=== PATIENT | female | born 1985 | race Caucasian/White ===

== ENCOUNTER 2016-03-02 07:13 | Inpatient (IN) | payer BC ==
[2016-03-02] VITALS (50 sets, daily range): BP systolic 90–140; BP diastolic 55–92
[~2016-03-02] VITALS: Ht 170.2 cm; Wt 82.8 kg
[~2016-03-02 07:13] MED LIST: ACHYD1T PO; AMOX500C2 PO; FAMO-106 PO; FAMO20TA13 PO; HYDR-3583 PO; IBP800T PO; PREN1TAB39 PO
[2016-03-02] MEDS ORDERED: OXYTOCIN/NORMAL SALINE 500 ML IV SCH ×2 (07:45→07:47)
[2016-03-02 07:59] LABS: BASOPHILS % (AUTO) 0 % (0-10); EOSINOPHILS % (AUTO) 0 % (0-10); LYMPHOCYTES # (AUTO) 1.5 X 10^3 (1.0-4.0); LYMPHOCYTES % (AUTO) 16 % (12-44); MEAN CORPUSCULAR HEMOGLOBIN 31 PG (25-34); MEAN CORPUSCULAR HGB CONC 34 G/DL (32-36); MEAN CORPUSCULAR VOLUME 92 FL (80-99); MEAN PLATELET VOLUME 12.4 FL (7.4-10.4); MONOCYTES # (AUTO) 0.7 X 10^3 (0.0-1.0); MONOCYTES % (AUTO) 7 % (0-12); NEUTROPHILS # (AUTO) 7.3 X 10^3 (1.8-7.8); NEUTROPHILS % (AUTO) 76 % (42-75); PLATELET COUNT 164 10^3/uL (130-400); RED BLOOD COUNT 4.33 10^6/uL (4.35-5.85); RED CELL DISTRIBUTION WIDTH 13.6 % (10.0-14.5); WHITE BLOOD COUNT 9.6 10^3/uL (4.3-11.0)
[2016-03-02] MEDS ORDERED: BENZOCAINE/MENTHOL (DERMOPLAST) 56 ML CAN TP PRN (08:00)
[2016-03-02] MEDS ORDERED: TETANUS,DIPTH,PERTUSS P/F (BOOSTRIX) 0.5 ML VIAL IM ONE (08:00)
[2016-03-02] MEDS ORDERED: MEASLES,MUMPS,RUBELLA 1 EA INJ SC ONE (08:00)
[2016-03-02] MEDS ORDERED: SUFENTA 1 MCG/ML BUPIVA 0.1% 100 ML ONE (08:01)
[2016-03-02] MEDS ORDERED: BUPIVACAINE 0.25% 30 ML (SENSORCAINE) VIAL ONE (08:01)
[2016-03-02] MEDS ORDERED: LIDOCAINE/EPI 1%-1:200,000 (XYLOCAINE) 30 ML VIAL ONE (08:01)
[2016-03-02] MEDS ORDERED: fentaNYL INJECTION 100 MCG/2 ML AMP ONE (08:02)
[2016-03-02] MEDS ORDERED: LACTATED RINGERS 1,000 ML IV ONE (08:02)
--- NOTE | 2016-03-02 08:09 | History & Physical ---
History and Physical this patient is a 30-year-old A1 white female with an EDC of 03-12-17 putting her at 38-4/7 weeks' gestation today. She had been seen in clinic and followed for progressively decreasing amniotic fluid index. Her last scan showed an TAMERA of 60.she is admitted on this date secondary to oligohydramnios. Patient denies rupture membranes or bleeding. GBS culture done after 35 weeks gestation was negative. Patient has had no other problems with this . Allergies are to tetracycline was causes a rash Indications are vitamins and Pepcid Past medical history, past surgical history, obstetric history, family history, social histories are per the antepartum record HEENT exam is normal Neck is supple no lymphadenopathy no thyromegaly Abdomen is gravid soft nontender nondistended Extremities show no clubbing cyanosis. There is no Homans sign. Pelvic exam now on admission shows a cervix 3 cm dilated 5070 percent effaced soft and anterior with presenting part at the 0 to -1 station. this equates to a Armendariz score of 8 or 9 lab work is pending Assessment and plan 38-4/7 weeks' gestation with oligohydramnios admitted for induction of labor. Anticipation is for vaginal delivery. 38-4/7 weeks' gestation with oligohydramnios Allergies and Home Medications Allergies Coded Allergies: tetracycline (Verified Allergy, Unknown, 03/02/16) Home Medications Amoxicillin 500 Mg Capsule #14 1,000 MG PO BID Prescribed by: JUNIOR PINEDA on 03/27/152014 Famotidine 20 Mg Tablet 20 MG PO DAILY (Reported) Hydrocodone Bit/Acetaminophen 1 Tab Tablet 1-2 TAB PO Q 3HRS NEEDED (Reported ) Ibuprofen 800 Mg Tab 800 MG PO Q 6HRS NEEDED (Reported) Vits W-Ca,Fe,Fa(<1MG) 1 Each Tablet 1 EACH PO (Reported) KRYSTIAN AMBROSE MD Mar 02, 2016 8:09 am
--- NOTE | 2016-03-02 08:10 | OB Bishop Score ---
Armendariz Score 9 KRYSTIAN AMBROSE MD Mar 02, 2016 8:09 am
[2016-03-02] MEDS: D5 LR IV SOLUTION 1,000 ML IV SCH ×2 (08:17→17:58)
[2016-03-02] MEDS ORDERED: FLU TRIvalent (5 YOA+) 2016-17 (AFLURIA) 0.5 ML IM ONE (09:00)
[2016-03-02] MEDS ORDERED: ONDANSETRON 4 MG/2 ML (SDV) Z0FRAN ONE (17:46)
[2016-03-02] MEDS: KETOROLAC 30 MG/ML VIAL IV SCH (17:57)
[2016-03-02] MEDS ORDERED: ONDANSETRON 4 MG/2 ML (SDV) Z0FRAN IVP ONE (18:00)
[2016-03-02] MEDS: DOCUSATE SODIUM 100 MG (COLACE) CAP PO SCH (20:34)
[2016-03-03 00:13] VITALS: BP 100/55
[2016-03-03] MEDS: KETOROLAC 30 MG/ML VIAL IV SCH ×2 (00:13→06:35)
[2016-03-03 05:05] VITALS: BP 92/50
[2016-03-03] MEDS ORDERED: KETOROLAC 30 MG/ML VIAL ONE (06:25)
--- NOTE | 2016-03-03 07:33 | Progress Note-Standard ---
Standard Progress Note Progress Notes/Assess & Plan Progress/Assessment & Plan this patient is without complaint. She is ambulating, voiding, tolerating fairly well, has good pain control. Vital signs are stable. Patient is afebrile. Vital Signs Date Time Temp Pulse Resp B/P Pulse Ox O2 Delivery O2 Flow Rate FiO2 03/03/16 05:05 98.0 69 18 92/50 98 Room Air 03/03/16 00:13 98.7 81 18 100/55 98 Room Air 03/02/16 20:36 98.2 91 18 115/63 98 Room Air 03/02/16 18:10 99.5 88 18 114/57 Room Air 03/02/16 18:00 100.0 101 18 111/59 Room Air 03/02/16 17:45 100.5 103 20 123/77 Room Air 03/02/16 17:30 104 20 112/67 Room Air 03/02/16 17:15 99.0 100 18 115/58 Room Air 03/02/16 17:00 99.1 104 18 126/68 Room Air 03/02/16 16:45 99.2 103 20 132/65 Room Air 03/02/16 16:30 99.0 112 20 131/56 Room Air 03/02/16 16:00 116 22 140/89 Room Air 03/02/16 15:45 89 20 130/81 Room Air 03/02/16 15:30 83 20 115/77 Room Air 03/02/16 15:15 85 20 112/75 Room Air 03/02/16 15:00 86 20 119/79 99 Room Air 03/02/16 14:45 85 18 115/77 97 Room Air 03/02/16 14:30 96.9 81 18 119/73 97 Room Air 03/02/16 14:15 82 20 117/72 98 Room Air 03/02/16 14:00 93 20 117/72 97 Room Air 03/02/16 13:45 86 20 112/69 97 Room Air 03/02/16 13:30 88 20 112/74 97 Room Air 03/02/16 13:24 93 18 119/76 97 Room Air 03/02/16 13:15 84 18 116/76 97 Room Air 03/02/16 13:00 93 18 119/76 97 Room Air 03/02/16 12:45 88 18 109/71 97 Room Air 03/02/16 12:30 87 20 110/71 96 Room Air 03/02/16 12:15 92 20 114/68 97 Room Air 03/02/16 12:00 89 20 111/70 97 Room Air 03/02/16 11:45 104 18 139/92 98 Room Air 03/02/16 11:30 89 18 107/76 98 Room Air 03/02/16 11:15 76 18 109/72 97 Room Air 03/02/16 11:00 90 20 116/80 97 Room Air 03/02/16 10:45 97.1 103 18 133/86 99 Room Air 03/02/16 10:30 80 18 116/77 96 Room Air 03/02/16 10:15 88 18 101/69 99 Room Air 03/02/16 10:00 96 18 119/76 97 Room Air 03/02/16 09:45 92 18 111/75 99 Room Air 03/02/16 09:40 96 16 111/71 99 Room Air 03/02/16 09:35 91 16 112/73 98 Room Air 03/02/16 09:30 91 18 110/75 98 Room Air 03/02/16 09:25 93 18 112/78 99 Room Air 03/02/16 09:20 93 16 90/55 99 Room Air 03/02/16 09:17 103 18 99/57 99 Room Air 03/02/16 09:15 114 18 112/76 99 Room Air 03/02/16 09:10 82 20 114/73 Room Air 03/02/16 09:05 96 20 116/74 Room Air 03/02/16 09:00 92 20 124/81 Room Air 03/02/16 08:50 93 20 114/72 Room Air 03/02/16 08:35 82 20 121/81 Room Air 03/02/16 08:20 74 20 117/78 Room Air fundus is firm below the umbilicus and nontender. Extremities are benign. There is no clubbing or cyanosis. There is no Homans sign. There is some pretibial pitting edema that is normal. Assessment and plan day number 1 doing well. Plan is for routine convalescence care today and plan for discharge home tomorrow KRYSTIAN AMBROSE MD Mar 03, 2016 7:33 am
[2016-03-03] MEDS ORDERED: IBUP-1780 PO (07:34)
[2016-03-03] MEDS ORDERED: OXYC-465 PO (07:34)
[2016-03-03] MEDS ORDERED: DOCU100C37 PO (07:34)
--- NOTE | 2016-03-03 07:36 | Discharge Instructions ---
Discharge Instructions Discharge Medications New, Converted or Re-Newed RX: RX on Chart Patient Instructions Patient Instructions: as directed Return to The Hospital For: as directed. Activity & Diet Discharge Diet: No Restrictions Activity as Tolerated: No Orders-Post D/C & Referrals Follow Up Appt: Call to make follow up appt. for patient in 4 weeks. Activity Per routine post vaginal delivery instructions. Diet as tolerated Patient may shower or tub bathe as desired. KRYSTIAN AMBROSE MD Mar 03, 2016 7:36 am
--- NOTE | 2016-03-03 09:08 | PROCEDURE REPORT ---
PROCEDURE PHYSICIAN: KRYSTIAN AMBROSE DATE OF PROCEDURE: 03/02/2016 DATE OF DICTATION: 03/02/2016 DELIVERY NOTE: The patient delivered by term spontaneous vaginal delivery of a viable female with Apgars of 7 and 9 at 1 and 5 minutes respectfully. Weight was 8 pounds 7 ounces. Delivery time was 1618. Blood gas is pending. Delivery was accomplished over a first-degree perineal laceration under epidural analgesia. There were fairly significant decels as patient was pushing. Cord blood was obtained from an umbilical artery for cord pH. Once the baby was delivered, the baby was resuscitated and stimulated. When the cord was pulseless, it was doubly clamped and cut and the infant passed to mom's abdomen. The infant was fairly quickly pink, was moving all extremities, had good tone, reflexes and crying. Pulse was over 100 shortly after delivery and remained that way. A nuchal cord x1 was easily released after the head was delivered. The delivery was completed. The infant was bulb suctioned on delivery of the head again on completion of delivery. The placenta delivered spontaneously Crane was normal with a 3 vessel cord. The cervix, vagina, rectum and perineum were examined and found intact except for a first-degree perineal laceration, extending from about the 4 o'clock to 6 o'clock position on the left side of the introitus. This was around the edge of the hymenal ring. There was a small periurethral abrasion that was hemostatic and was not repaired. The perineal laceration was repaired with a single suture of 3-0 Vicryl in the usual manner under local analgesia. Sponge and needle counts were correct on completion of delivery and the repair. Blood loss was around 150 mL. The patient tolerated delivery and repair well and remained in the LDR for recovery. The baby remained with the mom. Job ID: [id number] Dictated Date: 03/02/2016 16:35:08 Deportation Examiner Date: 03/03/2016 09:03:54 / luiz
[2016-03-03] MEDS: DOCUSATE SODIUM 100 MG (COLACE) CAP PO SCH ×2 (09:26→21:41)
[2016-03-03 09:28] VITALS: BP 113/63
[2016-03-03 12:06] VITALS: BP 111/62
[2016-03-03] MEDS: IBUPROFEN 800 MG (MOTRIN) TAB PO SCH ×2 (12:06→17:42)
[2016-03-03] MEDS: oxyCODONE/APAP 10/325MG (PERCOCET 10) TABLET PO PRN (12:06)
--- NOTE | 2016-03-03 12:32 | Anesthesia-Regional Post-Op ---
Regional Patient Condition Mental Status: Alert, Oriented x3 Circulation: Same as Pre-Op Headache: Absent Sensation: Full Recovery Motor Block: Absent Post Op Complications Complications None Follow Up Care/Instructions Patient Instructions None needed. Anesthesia/Patient Condition Patient is doing well, no complaints, stable vital signs, no apparent adverse anesthesia problems. PAYAL GUERRIER DO Mar 03, 2016 12:32
[2016-03-03 17:41] VITALS: BP 115/72
[2016-03-03 22:00] VITALS: BP 111/66
[2016-03-04] MEDS: IBUPROFEN 800 MG (MOTRIN) TAB PO SCH ×2 (00:31→06:25)
[2016-03-04] MEDS: oxyCODONE/APAP 10/325MG (PERCOCET 10) TABLET PO PRN (00:31)
[2016-03-04 03:25] VITALS: BP 113/74
--- NOTE | 2016-03-04 07:49 | Progress Note-Standard ---
Standard Progress Note Progress Notes/Assess & Plan Progress/Assessment & Plan this patient is without complaint. She is ambulating, voiding, tolerating fairly well, has good pain control. Vital signs are stable. Patient is afebrile. Vital Signs Date Time Temp Pulse Resp B/P Pulse Ox O2 Delivery O2 Flow Rate FiO2 03/03/16 05:05 98.0 69 18 92/50 98 Room Air 03/03/16 00:13 98.7 81 18 100/55 98 Room Air 03/02/16 20:36 98.2 91 18 115/63 98 Room Air 03/02/16 18:10 99.5 88 18 114/57 Room Air 03/02/16 18:00 100.0 101 18 111/59 Room Air 03/02/16 17:45 100.5 103 20 123/77 Room Air 03/02/16 17:30 104 20 112/67 Room Air 03/02/16 17:15 99.0 100 18 115/58 Room Air 03/02/16 17:00 99.1 104 18 126/68 Room Air 03/02/16 16:45 99.2 103 20 132/65 Room Air 03/02/16 16:30 99.0 112 20 131/56 Room Air 03/02/16 16:00 116 22 140/89 Room Air 03/02/16 15:45 89 20 130/81 Room Air 03/02/16 15:30 83 20 115/77 Room Air 03/02/16 15:15 85 20 112/75 Room Air 03/02/16 15:00 86 20 119/79 99 Room Air 03/02/16 14:45 85 18 115/77 97 Room Air 03/02/16 14:30 96.9 81 18 119/73 97 Room Air 03/02/16 14:15 82 20 117/72 98 Room Air 03/02/16 14:00 93 20 117/72 97 Room Air 03/02/16 13:45 86 20 112/69 97 Room Air 03/02/16 13:30 88 20 112/74 97 Room Air 03/02/16 13:24 93 18 119/76 97 Room Air 03/02/16 13:15 84 18 116/76 97 Room Air 03/02/16 13:00 93 18 119/76 97 Room Air 03/02/16 12:45 88 18 109/71 97 Room Air 03/02/16 12:30 87 20 110/71 96 Room Air 03/02/16 12:15 92 20 114/68 97 Room Air 03/02/16 12:00 89 20 111/70 97 Room Air 03/02/16 11:45 104 18 139/92 98 Room Air 03/02/16 11:30 89 18 107/76 98 Room Air 03/02/16 11:15 76 18 109/72 97 Room Air 03/02/16 11:00 90 20 116/80 97 Room Air 03/02/16 10:45 97.1 103 18 133/86 99 Room Air 03/02/16 10:30 80 18 116/77 96 Room Air 03/02/16 10:15 88 18 101/69 99 Room Air 03/02/16 10:00 96 18 119/76 97 Room Air 03/02/16 09:45 92 18 111/75 99 Room Air 03/02/16 09:40 96 16 111/71 99 Room Air 03/02/16 09:35 91 16 112/73 98 Room Air 03/02/16 09:30 91 18 110/75 98 Room Air 03/02/16 09:25 93 18 112/78 99 Room Air 03/02/16 09:20 93 16 90/55 99 Room Air 03/02/16 09:17 103 18 99/57 99 Room Air 03/02/16 09:15 114 18 112/76 99 Room Air 03/02/16 09:10 82 20 114/73 Room Air 03/02/16 09:05 96 20 116/74 Room Air 03/02/16 09:00 92 20 124/81 Room Air 03/02/16 08:50 93 20 114/72 Room Air 03/02/16 08:35 82 20 121/81 Room Air 03/02/16 08:20 74 20 117/78 Room Air fundus is firm below the umbilicus and nontender. Extremities are benign. There is no clubbing or cyanosis. There is no Homans sign. There is some pretibial pitting edema that is normal. Assessment and plan day number 1 doing well. Plan is for routine convalescence care today and plan for discharge home tomorrow March 04, 2016 Patient is without complaint. She is ambulating, voiding, tolerating by mouth well, has good pain control, is requesting discharge home. Vital Signs Date Time Temp Pulse Resp B/P Pulse Ox O2 Delivery O2 Flow Rate FiO2 03/04/16 03:25 97.1 67 18 113/74 95 Room Air 03/03/16 22:00 97.9 76 18 111/66 96 Room Air 03/03/16 17:41 98.4 63 18 115/72 98 Room Air 03/03/16 12:06 97.0 70 18 111/62 99 Room Air 03/03/16 09:28 98.1 80 18 113/63 98 Room Air vital signs are stable. Patient is afebrile. Fundus is firm below the umbilicus and nontender. Extremities show no clubbing or cyanosis. There is no Homans sign. There is some pretibial pitting edema that is normal. Assessment and plan day number 2 status post term spontaneous vaginal delivery at 38 and 3/7 weeks gestation. Plan is for discharge home with follow- up in clinic. Final Diagnosis 38-4/7 weeks' gestation with spontaneous vaginal delivery KRYSTIAN AMBROSE MD Mar 04, 2016 7:48 am
[2016-03-04] MEDS: DOCUSATE SODIUM 100 MG (COLACE) CAP PO SCH (08:15)
[2016-03-04 08:20] VITALS: BP 116/68
[2016-03-04] MEDS ORDERED: MEASLES,MUMPS,RUBELLA 1 EA INJ ONE (11:04)
== END 2016-03-04 12:15 | disposition home or self-care (01) | DRG 775 ==
LOC: WSo 07:13 → LDRP 07:14
PROVIDERS: ADMIT Obstetrics & Gynecology; ATTEND Obstetrics & Gynecology
PROC: 0HQ9XZZ Repair Perineum Skin, External Approach (ICD-10-PCS; principal; 2016-03-02)
PROC: 10E0XZZ Delivery of Products of Conception, External Approach (ICD-10-PCS; 2016-03-02)
DX: O41.03X0 Oligohydramnios, third trimester, not applicable or unspecified (principal); O70.0 First degree perineal laceration during delivery; O76 Abnormality in fetal heart rate and rhythm complicating labor and delivery; O69.81X0 Labor and delivery complicated by cord around neck, without compression, not applicable or unspecified; Z3A.38 38 weeks gestation of pregnancy; Z37.0 Single live birth; Z23 Encounter for immunization
CPT/HCPCS: 36415; 85025; 86850; 86900; 86901; 90707

== ENCOUNTER 2019-10-09 12:14 | Emergency (ER) | payer BC ==
[~2019-10-09] VITALS: Ht 162.5 cm; Wt 79.5 kg
[~2019-10-09 12:14] MED LIST changes: +DOCU100C37 PO; +IBUP-1780 PO; +OXYC-465 PO
[2019-10-09 13:37] LABS: BILIRUBIN,URINE NEGATIVE (NEGATIVE); CLARITY,URINE SL CLOUDY; COLOR,URINE YELLOW; GLUCOSE, URINE (UA) NEGATIVE (NEGATIVE); KETONES,URINE NEGATIVE (NEGATIVE); LEUKOCYTE ESTERASE ,URINE NEGATIVE (NEGATIVE); NITRITE,URINE NEGATIVE (NEGATIVE); PROTEIN,URINE NEGATIVE (NEGATIVE)
--- NOTE | 2019-10-09 13:41 | ED Abdominal Pain ---
General Chief Complaint: Abdominal/GI Problems Stated Complaint: FEVER;ABDOMINAL PAIN Source of Information: Patient Exam Limitations: No Limitations History of Present Illness Date Seen by Provider: Oct 09, 2019 Time Seen by Provider: 13:00 Initial Comments to ER by private vehicle with reports of diffuse abdominal cramping that awak ened her from sleep at about 1:30 this morning and resolved at 5:30. She has had some diarrhea since. She has had a fever up to 101. Last week she had urinary frequency and burning but she increased her water intake and those symptoms subsided. She denies nausea or vomiting. She is concerned she may have had some gallbladder disease as it runs in her family. Timing/Duration: 12 Hours Severity/Quality: Moderate Location: Epigastric, Generalized Abdomen Radiation: No Radiation Activities at Onset: None Allergies and Home Medications Allergies Coded Allergies: tetracycline (Verified Allergy, Unknown, 03/02/16) Home Medications Amoxicillin 500 Mg Capsule, 1,000 MG PO BID Prescribed by: JUNIOR PINEDA on 03/27/152014 Docusate Sodium 100 Mg Capsule, 100 MG PO BID Prescribed by: KRYSTIAN ULLOA on 03/03/16 0734 Famotidine 20 Mg Tablet, 20 MG PO DAILY, (Reported) Ibuprofen 800 Mg Tablet, 800 MG PO Q6H Prescribed by: KRYSTIAN ULLOA on 03/03/16 0734 Oxycodone HCl/Acetaminophen 1 Each Tablet, 1-2 TAB PO Q4H PRN for PAIN Prescribed by: KRYSTIAN ULLOA on 03/03/16 0734 Patient Home Medication List Home Medication List Reviewed: Yes Review of Systems Review of Systems Constitutional: see HPI EENTM: No Symptoms Reported Respiratory: No Symptoms Reported Cardiovascular: No Symptoms Reported Gastrointestinal: See HPI, Abdominal Pain, Diarrhea Genitourinary: No Symptoms Reported Musculoskeletal: no symptoms reported Skin: no symptoms reported Psychiatric/Neurological: No Symptoms Reported Past [id number]-Roxevc Hx Patient Social History Recent Foreign Travel: No Contact w/Someone Who Travel: No (N) Recent Hopitalizations: No Immunizations Up To Date PED Vaccines UTD: Yes Seasonal Allergies Seasonal Allergies: No Past Medical History Surgeries: Yes Respiratory: No Cardiac: No Neurological: No Reproductive Disorders: Yes (CINI 2009) Genitourinary: No Gastrointestinal: Yes Gastroesophageal Reflux Musculoskeletal: Yes Scoliosis Endocrine: No HEENT: No Cancer: No Psychosocial: No Integumentary: No Blood Disorders: No Adverse Reaction/Blood Tranf: No Family Medical History Patient reports no known family medical history. Physical Exam Vital Signs Vital Signs - First Documented 10/09/19 13:19 Temp 37.9 Pulse 92 Resp 18 B/P (MAP) 121/72 (88) O2 Delivery Room Air Capillary Refill : Height/Weight/BMI Height: 5'7.00" Weight: 182lbs. 8.0oz. 82.024217ne; 28.6 BMI Method: General Appearance: WD/WN, no apparent distress Respiratory: normal breath sounds, no respiratory distress, no accessory muscle use Cardiovascular: regular rate, rhythm, no murmur Gastrointestinal: normal bowel sounds, non tender, soft Extremities: normal range of motion, non-tender Neurologic/Psychiatric: alert, normal mood/affect, oriented x 3 Skin: normal color, warm/dry Progress/Results/Core Measures Results/Orders Lab Results Laboratory Tests Test 10/09/19 13:33 10/09/19 13:50 Range/Units Urine Color YELLOW Urine Clarity SL CLOUDY Urine pH 5.0 5-9 Urine Specific [place] >=1.030 1.016-1.022 Urine Protein NEGATIVE NEGATIVE Urine Glucose (UA) NEGATIVE NEGATIVE Urine Ketones NEGATIVE NEGATIVE Urine Nitrite NEGATIVE NEGATIVE Urine Bilirubin NEGATIVE NEGATIVE Urine Urobilinogen 0.2 < = 1.0 MG/DL Urine Leukocyte Esterase NEGATIVE NEGATIVE Urine RBC (Auto) NEGATIVE NEGATIVE Urine RBC RARE /HPF Urine WBC 0-2 /HPF Urine Squamous Epithelial Cells 10-25 H /HPF Urine Crystals NONE /LPF Urine Bacteria TRACE /HPF Urine Casts NONE /LPF Urine Mucus SMALL H /LPF Urine Culture Indicated NO White Blood Count 9.2 4.3-11.0 10^3/uL Red Blood Count 4.37 4.35-5.85 10^6/uL Hemoglobin 12.7 11.5-16.0 G/DL Hematocrit 38 35-52 % Mean Corpuscular Volume 88 80-99 FL Mean Corpuscular Hemoglobin 29 25-34 PG Mean Corpuscular Hemoglobin Concent 33 32-36 G/DL Red Cell Distribution Width 11.9 10.0-14.5 % Platelet Count 238 130-400 10^3/uL Mean Platelet Volume 10.3 7.4-10.4 FL Neutrophils (%) (Auto) 89 H 42-75 % Lymphocytes (%) (Auto) 6 L 12-44 % Monocytes (%) (Auto) 5 0-12 % Eosinophils (%) (Auto) 0 0-10 % Basophils (%) (Auto) 0 0-10 % Neutrophils # (Auto) 8.2 H 1.8-7.8 X 10^3 Lymphocytes # (Auto) 0.5 L 1.0-4.0 X 10^3 Monocytes # (Auto) 0.5 0.0-1.0 X 10^3 Eosinophils # (Auto) 0.0 0.0-0.3 10^3/uL Basophils # (Auto) 0.0 0.0-0.1 10^3/uL Neutrophils % (Manual) 83 % Lymphocytes % (Manual) 3 % Monocytes % (Manual) 3 % Band Neutrophils 11 % Blood Morphology Comment NORMAL Sodium Level 137 135-145 MMOL/L Potassium Level 3.6 3.6-5.0 MMOL/L Chloride Level 105 98-107 MMOL/L Carbon Dioxide Level 24 21-32 MMOL/L Anion Gap 8 5-14 MMOL/L Blood Urea Nitrogen 16 7-18 MG/DL Creatinine 0.83 0.60-1.30 MG/DL Estimat Glomerular Filtration Rate > 60 BUN/Creatinine Ratio 19 Glucose Level 100 70-105 MG/DL Calcium Level 8.8 8.5-10.1 MG/DL Corrected Calcium 8.8 8.5-10.1 MG/DL Total Bilirubin 0.7 0.1-1.0 MG/DL Aspartate Amino Transf (AST/SGOT) 12 5-34 U/L Alanine Aminotransferase (ALT/SGPT) 9 0-55 U/L Alkaline Phosphatase 58 40-136 U/L C-Reactive Protein High Sensitivity 1.39 H 0.00-0.50 MG/DL Total Protein 7.2 6.4-8.2 GM/DL Albumin 4.0 3.2-4.5 GM/DL Lipase 11 8-78 U/L Serum Test, Qualitative NEGATIVE NEGATIVE My Orders Orders - ALBERT SR APRN Cbc With Automated Diff (10/09/19 13:39) Hcg,Qualitative Serum (10/09/19 13:39) Comprehensive Metabolic Panel (10/09/19 13:39) Lipase (10/09/19 13:39) Ed Iv/Invasive Line Start (10/09/19 13:39) Hs C Reactive Protein (10/09/19 13:39) Us Gallbladder [id number] (10/09/19 13:39) Manual Differential (10/09/19 13:50) Vital Signs/I&O 10/09/19 13:19 Temp 37.9 Pulse 92 Resp 18 B/P (MAP) 121/72 (88) O2 Delivery Room Air Departure Communication (Admissions) 1445-A she remains without abdominal pain nausea or diarrhea here. Workup is unremarkable. We'll discharge to home. Impression Primary Impression: History of diarrhea Additional Impression: History of abdominal pain Disposition: HOME, SELF-CARE Condition: Stable Departure-Patient Inst. Decision time for Depature: 14:46 Referrals: KRYSTIAN AMBROSE MD (PCP/Family) Primary Care Physician Patient Instructions: [id number] Add. Discharge Instructions: 1. Return to ER for any bloody stools, worsening or intolerable abdominal pain. Follow-up with your doctor later this week. All discharge instructions reviewed with patient and/or family. Voiced understanding. ALBERT SR PROFESSOR OF POULTRY SCIENCE Oct 09, 2019 13:41
[2019-10-09 13:44] LABS: BACTERIA,URINE TRACE /HPF; RBC,URINE RARE /HPF; WBC,URINE 0-2 /HPF
[2019-10-09 13:57] LABS: BASOPHILS % (AUTO) 0 % (0-10); EOSINOPHILS % (AUTO) 0 % (0-10); HEMATOCRIT 38 % (35-52); HEMOGLOBIN 12.7 G/DL (11.5-16.0); LYMPHOCYTES # (AUTO) 0.5 X 10^3 (1.0-4.0); LYMPHOCYTES % (AUTO) 6 % (12-44); MEAN CORPUSCULAR HEMOGLOBIN 29 PG (25-34); MEAN CORPUSCULAR HGB CONC 33 G/DL (32-36); MEAN CORPUSCULAR VOLUME 88 FL (80-99); MEAN PLATELET VOLUME 10.3 FL (7.4-10.4); MONOCYTES # (AUTO) 0.5 X 10^3 (0.0-1.0); MONOCYTES % (AUTO) 5 % (0-12); NEUTROPHILS # (AUTO) 8.2 X 10^3 (1.8-7.8); NEUTROPHILS % (AUTO) 89 % (42-75); PLATELET COUNT 238 10^3/uL (130-400); RED CELL DISTRIBUTION WIDTH 11.9 % (10.0-14.5); WHITE BLOOD COUNT 9.2 10^3/uL (4.3-11.0)
[2019-10-09 14:18] LABS: ALANINE AMINOTRANSFERASE 9 U/L (0-55); ALKALINE PHOSPHATASE 58 U/L (40-136); BILIRUBIN,TOTAL 0.7 MG/DL (0.1-1.0); BUN/CREATININE RATIO 19; CALCIUM 8.8 MG/DL (8.5-10.1); CARBON DIOXIDE 24 MMOL/L (21-32); CHLORIDE 105 MMOL/L (98-107); CREATININE SERUM 0.83 MG/DL (0.60-1.30); GFR ESTIMATED > 60; GLUCOSE 100 MG/DL (70-105); LIPASE 11 U/L (8-78); POTASSIUM 3.6 MMOL/L (3.6-5.0); SODIUM 137 MMOL/L (135-145); TOTAL PROTEIN 7.2 GM/DL (6.4-8.2)
[2019-10-09 14:19] LABS: BAND NEUTROPHILS 11 %; LYMPHOCYTES % (MANUAL) 3 %; MONOCYTES % (MANUAL) 3 %; NEUTROPHILS % (MANUAL) 83 %; RBC MORPH NORMAL
--- NOTE | 2019-10-09 14:56 | Diagnostic Imaging Report ---
PROCEDURE: US Gallbladder. TECHNIQUE: Multiple real-time grayscale images were obtained over the right upper quadrant in various projections. INDICATION: Right upper quadrant pain. FINDINGS: Liver is normal in size at 17.4 cm. No discrete liver mass is detected. Portal vein is patent and shows normal direction of flow. Gallbladder is without stones or sludge. No wall thickening or biliary ductal dilatation is seen. Pancreas is unremarkable. Aorta is nonaneurysmal. IVC is patent. Right kidney is without calculi or hydronephrosis. There is no ascites. IMPRESSION: Unremarkable gallbladder ultrasound. Dictated by: Dictated on workstation # [id number]
[2019-10-09 15:05] VITALS: BP 121/73
== END 2019-10-09 15:04 | disposition home or self-care (01) ==
LOC: EDUNIT# 12:14 → ER 12:16
DX: R19.7 Diarrhea, unspecified (principal); K21.9 Gastro-esophageal reflux disease without esophagitis; Z88.1 Allergy status to other antibiotic agents; Z32.02 Encounter for pregnancy test, result negative
CPT/HCPCS: 36415; 76705; 80053; 81000; 83690; 84703; 85007; 85027; 86141